=== PATIENT | female | born 1975 | race African-American/Black ===

== ENCOUNTER 2022-01-19 10:32 | Outpatient (CLI) | payer BC ==
[2022-01-19 13:01] LABS: ALT (SGPT) 12 U/L (8-55); AST (SGOT) 13 U/L (5-34); Albumin 3.9 g/dL (3.5-5.0); Alkaline Phosphatase 50 U/L (40-110); Anion Gap 14 mmol/L (10-20); BUN (Urea Nitrogen) 11 mg/dL (7.0-18.7); Bilirubin, Total 0.5 mg/dL (0.2-1.2); Calc. Creatinine Clearance 0 mL/min (70-130); Calcium 9.1 mg/dL (7.8-10.44); Carbon Dioxide 28 mmol/L (22-29); Chloride 102 mmol/L (98-107); Globulin 3.7 g/dL (2.4-3.5); Glucose 100 mg/dL (70-105); Protein, Total 7.6 g/dL (6.0-8.3); Sodium 140 mmol/L (136-145)
[2022-01-19 14:54] LABS: Pregs Control Background? CLEAR/WHITE (CLR/WHITE); Pregs Control Bar Appear? YES (CONTROL BAR)
[2022-01-19 14:55] LABS: BHCG - Serum Negative (NEGATIVE)
[2022-01-19 18:45] LABS: SARS-CoV-2 PCR by NAA Not Detected (NotDetected)
== END 2022-01-19 10:33 | disposition home or self-care (01) ==
LOC: CSHLAB 10:32
PROVIDERS: ATTEND Surgery
DX: Z01.812 Encounter for preprocedural laboratory examination (principal); Z20.822 Contact with and (suspected) exposure to COVID-19; K80.20 Calculus of gallbladder without cholecystitis without obstruction
CPT/HCPCS: 80053; 84703; U0003; U0005

== ENCOUNTER 2022-01-22 08:10 | Day surgery (SDC) | payer BC ==
[2022-01-20 15:08] VITALS: BMI 28.0
[~2022-01-22 08:10] MED LIST: Bupivacaine PF 0.5% 30 ML VIAL ONE; EPINEPHrine 1 MG/ML AMP ONE
[2022-01-22] MEDS ORDERED: Lidocaine 1% PF 5 ML VIAL ONE (09:08)
[2022-01-22] MEDS ORDERED: EPINEPHrine 1 MG/ML AMP ONE (10:06)
[2022-01-22] MEDS ORDERED: Bupivacaine PF 0.5% 30 ML VIAL ONE (10:06)
[2022-01-22] MEDS ORDERED: Clindamycin/D5W 600 MG in Premix Bag 1 BAG IVPB SCH (10:30)
[2022-01-22] MEDS ORDERED: Fentanyl 250 MCG/5 ML VIAL ONE (11:11)
[2022-01-22] MEDS ORDERED: Ondansetron PF 4 MG/2 ML Vial ONE (11:11)
[2022-01-22] MEDS ORDERED: Dexamethasone 4 mg/ml Vial ONE (11:11)
[2022-01-22] MEDS ORDERED: Ketorolac Tromethamine 30 MG/ML VIAL ONE (11:11)
[2022-01-22] MEDS ORDERED: Glycopyrrolate 0.2 MG/ML 5 ML SYRINGE ONE (11:11)
[2022-01-22] MEDS ORDERED: PROPOFOL 20 ML ONE (11:11)
[2022-01-22] MEDS ORDERED: SUGAMMADEX SODIUM 200 MG/2 ML VIAL ONE (11:14)
[2022-01-22] MEDS ORDERED: Fentanyl 100 MCG/2 ML VIAL ONE (11:28)
[2022-01-22] MEDS ORDERED: Acetaminophen 325 MG TAB PO PRN (11:46)
[2022-01-22] MEDS ORDERED: HYDROcodone/Acetaminophen 5/325 mg Tablet PO PRN (11:46)
[2022-01-22] MEDS ORDERED: HYDROcodone/Acetaminophen 5/325 mg Tablet ONE (13:03)
== END 2022-01-22 13:14 | disposition home or self-care (01) ==
LOC: CSHSDC 08:10
PROVIDERS: ATTEND Surgery
PROC: 0FT44ZZ Resection of Gallbladder, Percutaneous Endoscopic Approach (ICD-10-PCS; principal; 2022-01-22)
PROC: 8E0W4CZ Robotic Assisted Procedure of Trunk Region, Percutaneous Endoscopic Approach (ICD-10-PCS; principal; 2022-01-22)
DX: K80.10 Calculus of gallbladder with chronic cholecystitis without obstruction (principal); I49.3 Ventricular premature depolarization; E03.9 Hypothyroidism, unspecified; I10 Essential (primary) hypertension; Z79.899 Other long term (current) drug therapy; Z79.82 Long term (current) use of aspirin; Z88.0 Allergy status to penicillin; Z88.8 Allergy status to other drugs, medicaments and biological substances
CPT/HCPCS: 88304; C1776; J0171; J1100; J1885; J2405; J2704; J3010; J3490; S0020